=== PATIENT | female | born 1965 | race Caucasian/White ===

== ENCOUNTER → 2016-07-02 | Outpatient (CLI) | payer BC | LOC: MC.RAD 11:00 | DX: Z12.31 Encounter for screening mammogram for malignant neoplasm of breast (principal) ==

== ENCOUNTER → 2018-05-06 | Outpatient (CLI) | payer OTHER | LOC: MC.RAD 13:19 | DX: Z12.31 Encounter for screening mammogram for malignant neoplasm of breast (principal) ==

== ENCOUNTER 2018-06-26 08:44 | Day surgery (SDC) | payer OTHER ==
[~2018-06-26] VITALS: Ht 172.7 cm; Wt 85.9 kg
[2018-06-26 09:44] VITALS: BP 121/73; PULSE 59; TEMP 98
[2018-06-26] MEDS ORDERED: KLONOPIN 1MG1 MG PO (09:48)
[2018-06-26] MEDS ORDERED: SYNTHROID0.137 MG PO (09:49)
[2018-06-26] MEDS ORDERED: LOPREEZA1 TAB PO (09:50)
[2018-06-26] MEDS ORDERED: MOBIC15 MG PO (09:50)
[2018-06-26] MEDS ORDERED: ZOVIRAX400 MG PO (09:51)
[2018-06-26 10:40] VITALS: BP 101/64; PULSE 66; TEMP 97.7
--- NOTE | 2018-06-26 10:40 | NUR ---
Patient arrives to [facility] via cart, accompanied by Endo DEIDRE Farooq. She is alert and oriented. She ambulates with standby assist to chair in room. Monitoring applied - VSS and WNL on room air. Denies any pain or nausea. Offered and receives water and a muffin - tolerates well. Call light in reach. Son at the bedside. Will continue to monitor.
[2018-06-26 10:55] VITALS: BP 110/62; PULSE 56
--- NOTE | 2018-06-26 10:55 | NUR ---
VSS and WNL on room air. Denies any pain, nausea, or need at this time. Asks "when can I go home?". Discussed plan of care. Will continue to monitor.
[2018-06-26 11:10] VITALS: BP 109/67; PULSE 57
--- NOTE | 2018-06-26 11:10 | NUR ---
VSS and WNL on room air. Denies any pain, nausea, or need. Dr. Lopes at the bedside. Discharge criteria has been met. PIV removed with catheter intact and hemostasis achieved. Discharge instructions discussed, denies any questions, and verbalizes understanding. Changes to clothing independently.
--- NOTE | 2018-06-26 11:20 | NUR ---
Escorted to exit via wheelchair. Discharged to home with ride in private vehicle at 1120.
== END 2018-06-26 11:20 | disposition home or self-care (01) ==
LOC: SDCO 08:44
DX: Z12.11 Encounter for screening for malignant neoplasm of colon (principal); K51.40 Inflammatory polyps of colon without complications; J45.909 Unspecified asthma, uncomplicated; E03.9 Hypothyroidism, unspecified; K21.9 Gastro-esophageal reflux disease without esophagitis; C92.00 Acute myeloblastic leukemia, not having achieved remission; Z86.718 Personal history of other venous thrombosis and embolism; Z87.11 Personal history of peptic ulcer disease; M79.7 Fibromyalgia; Z79.899 Other long term (current) drug therapy; C44.90 Unspecified malignant neoplasm of skin, unspecified
CPT/HCPCS: J2704